=== PATIENT | female | born 1950 | race Caucasian/White ===

== ENCOUNTER 2016-12-27 09:50 | Inpatient (IN) ==
[2016-12-27] MEDS ORDERED: HYDROmorphone 2 MG/1 ML VIAL IV STA (10:01)
[2016-12-27] MEDS ORDERED: ONDANSETRON 4 MG/2 ML VIAL IV STA ×2 (10:02→11:09)
[2016-12-27] MEDS ORDERED: ONDANSETRON 4 MG/2 ML VIAL ONE ×2 (10:09→11:11)
[2016-12-27] MEDS ORDERED: HYDROmorphone 2 MG/1 ML VIAL ONE (10:10)
[2016-12-27] MEDS ORDERED: cefTRIAXone 2,000 MG in SODIUM CHLORIDE 0.9% 100 ML IV ONE (10:14)
[2016-12-27 10:43] LABS: Basophils # 0.2 10*3/uL (0.0-0.2); Basophils % 1.1 % (0.0-0.8); Eosinophils # 0.3 10*3/uL (0.0-0.87); Eosinophils % 2.3 % (0.00-10.9); Hematocrit 42.6 VOL% (35.7-47.0); Hemoglobin 14.4 GM/DL (12.0-16.0); Immature Granulocytes % 0.6 %; Immature Granulocytes Absolute 0.08 #; Lymphocytes # 2.2 10*3/uL (1.4-4.0); Lymphocytes % 15.3 % (21.3-54.2); Mean Corpuscular HGB Conc 33.8 GM/DL (32-36); Mean Corpuscular Hemoglobin 30 PG (27-34); Mean Corpuscular Volume 90.1 FL (87-102); Mean Platelet Volume 10.4 FL (9.6-12.0); Monocytes # 1.2 10*3/uL (0.11-0.8); Monocytes % 8.8 % (1.7-12.7); Neutrophils # 10.1 10*3/uL (1.4-7.4); Neutrophils % 71.9 % (38.7-73.9); Platelet Count 346 T/CUMM (130-400); Red Blood Count 4.73 MC/CUMM (3.8-5.5); Red Cell Distribution Width 14.7 % (9.3-17.3); White Blood Count 14.1 T/CUMM (4-12)
[2016-12-27 10:54] LABS: PT Patient Result 10.4 SECS; Partial Thromboplastin Time 26.6 SECS (0-40)
[2016-12-27] MEDS ORDERED: MIDAZOLAM 2 MG/2 ML VIAL IV STA (10:55)
--- NOTE | 2016-12-27 10:57 | CT Report ---
Referring physician: Lenny Mosley Exam: CT brain without contrast Date: 12/27/2016 Comparison: None Reason: Headache Technique: Axial images of the head were obtained without the use of contrast. Total DLP was 1416.60 mGy*cm. Findings: No hydrocephalus or midline shift is present. There is no evidence of an acute infarction, recent intracranial hemorrhage or extracerebral collection. 20 x 9 mm asymmetric CSF finding anterior to the left temporal lobe. The osseous structures appear intact. The mastoid air cells are clear. Minimal mucosal thickening in the visualized paranasal sinuses. Impression: No acute intracranial abnormality is identified. 20 x 9 mm possible small arachnoid cyst anterior to the left temporal lobe. This finding could be related to asymmetric cerebral atrophy. Very minimal mucosal thickening in the paranasal sinuses. The CT exam was performed using one or more of the following dose reduction techniques: Automated exposure control and adjustment of the mA and/or kV according to patient size. PROCEDURE INTERPRETED AT [facility] DEPARTMENT OF RADIOLOGY Final Report Signed by: Dr. Elizabet Schwarz
--- NOTE | 2016-12-27 10:57 | CT Report ---
Exam: CT sinus wo con Date: 12/27/2016 Reason: Headache Comparison: None Technique: Axial images of the paranasal sinuses were obtained without the use of contrast. Sagittal and coronal reformatted images were also acquired. Total DLP was 1416.60 mGy*cm. Findings: Very minimal mucosal thickening in the paranasal sinuses with no air-fluid levels. Deviation the nasal septum to the left anteriorly. Impression: Very minimal mucosal thickening in the paranasal sinuses with no air-fluid levels. Deviation of the nasal septum to the left. This CT exam was performed using one or more of the following dose reduction techniques: Automatic exposure control, adjustment of the MA and/or KV according to patient size, or use of iterative reconstruction technique. PROCEDURE INTERPRETED AT [facility] DEPARTMENT OF RADIOLOGY Final Report Signed by: Dr. Elizabet Schwarz
[2016-12-27] MEDS ORDERED: MIDAZOLAM 2 MG/2 ML VIAL ONE (10:58)
[2016-12-27 11:20] LABS: Calcium 8.6 MG/DL (8.5-10.1); Osmolality,Calculated 282.1 MOS/KG (273-304); Potassium 4.2 MMOL/L (3.5-5.1)
[2016-12-27 11:47] LABS: Appearance,CSF Clear; Lymphocytes,CSF 60 %; Monocytes,CSF 37 %; Neutrophils,CSF 3 %; Red Blood Cell,CSF 2 C/CUMM; White Blood Cell,CSF 134 C/CUMM
[2016-12-27 11:49] LABS: Sedimentation Rate-Westergren 17 MM/HR (0-30)
[2016-12-27 11:55] LABS: Glucose,CSF 50 MG/DL (40-70)
[2016-12-27] MEDS ORDERED: HYDROmorphone 2 MG/1 ML VIAL IV PRN (12:18)
[2016-12-27] MEDS ORDERED: NALOXONE 0.4 MG/ML VIAL IV PRN (12:18)
--- NOTE | 2016-12-27 12:33 | Emergency Department Note ---
Rafy Dean Brittany, am scribing for, and in the presence of, Sedrick Mosley MD 10:03. Dimitri Dean Doug C, MD, personally performed the services described in this documentation, ascribed by Jeaneth Hillman in my presence, and it is both accurate and complete . Arrival - Arrival Chief Complaint: Headache Stated Complaint: H/A ED Nursing Triage Note: h/a for two days with some fever and nausea and feels like she is having confusion. Mode of Arrival: Wheelchair Limitations: No Limitations Source: Patient, RN Notes Reviewed Time Seen by Provider: 12/27/16 10:01 - History of Present Illness HPI Narrative: Patient 66-year-old white female developed severe headache beginning yesterday. Patient states pain is in the left frontal area associated with some mild photophobia but she has no history of migraine. Patient states she has felt hot at home and she developed nausea and vomiting as well. She is here in town taking care of her grandchildren while her son and [id number] are vacationing in [place]. None of her grandchildren have been ill. Patient states she has had some sinus congestion but no purulent drainage or epistaxis. Her noticed that she got a little confused this morning. She has no lateralizing weakness or paresthesias. Onset (ago): day(s) (2) Consistency: constant Severity: moderate Severity scale (1-10): 6 Quality: aching Allergies/Adverse Reactions: Allergies Allergy/AdvReac Type Severity Reaction Status Date / Time No Known Allergies Allergy Unverified 12/27/16 09:58 Review of System - Review of System 12 point system: reviewed and no additional remarkable complaints except as stated - Review of System Constitutional: Present: fever. Absent: chills Eyes: Present: other (photophobia) Head/Ears/Nose/Throat: Present: see HPI. Absent: earache, nasal drainage, sore throat Respiratory: Absent: cough, respiratory distress Cardiovascular: Absent: chest pain Gastrointestinal: Present: nausea, vomiting. Absent: abdominal pain, diarrhea, constipation Genitourinary female: Absent: dysuria, frequency, urgency Musculoskeletal: Absent: arm pain, back pain, leg pain, neck pain Skin: Absent: rash Neurological: Present: headache, confusion. Absent: numbness, paresthesias Psychiatric: Absent: anxiety, depression Hematological/Lymphatic: Absent: easy bleeding, easy bruising Medical,Surgical,& Family Hx - Medical History Cardio: History of: Hypertension - Surgical History Surgical History: noncontributory - Family History Family History: noncontributory - Social History Smoking Status: Unknown if ever smoked Exam Vital Signs: Vital Signs Temperature 101.5 F H 12/27/16 09:54 Pulse Rate 94 H 12/27/16 09:54 Respiratory Rate 18 12/27/16 09:54 Blood Pressure 116/87 12/27/16 09:54 O2 Sat by Pulse Oximetry 99 12/27/16 09:54 - General General appearance: alert, in no apparent distress - Head Head exam: Present: atraumatic, normocephalic, normal inspection - Eye Eye exam: Present: normal appearance, PERRL, EOMI - ENT ENT exam: Present: normal exam, normal oropharynx - Neck Neck exam: Present: normal inspection, full ROM, trachea midline - Chest Chest inspection: Present: normal inspection, symmetric chest wall rise - Respiratory Respiratory exam: Present: normal lung sounds bilaterally - Cardiovascular Cardiovascular exam: Present: regular rate, normal rhythm, normal heart sounds - Abdominal Exam Abdominal exam: Present: soft, normal bowel sounds. Absent: tenderness - Extremities Exam Extremities exam: Present: normal inspection - Back Exam Back exam: Present: normal inspection - Neurological Exam Neurological exam: Present: alert, oriented X3, CN II-XII intact. Absent: motor sensory deficit - Psychiatric Psychiatric exam: Present: normal affect, normal mood - Skin Skin exam: Present: warm, dry Course Course Narrative: I discussed patient with her son Dr. Sheriff and Dr. Olivarez . Patient agrees to come into the hospital and I reviewed her care with Dr. Michaels. He agrees to this beginning IV acyclovir which was started in the emergency room. Patient's Gram stain was negative and her CSF differential was strongly suggestive of aseptic meningitis. Results - Labs CBC & BMP: 12/27/16 10:17 12/27/16 10:17 Lab Results: I have reviewed the patients labs Labs: Laboratory Tests 12/27/16 12/27/16 10:17 10:17 WBC 14.1 H RBC 4.73 Hgb 14.4 Hct 42.6 Plt Count 346 Lymph % (Auto) 15.3 L Baso % (Auto) 1.1 H Neut # (Auto) 10.1 H [place] # (Auto) 1.2 H INR 1.0 PT Patient/Control Mix 10.4 Circ Anticoag PTT 26.6 Laboratory Tests 12/27/16 10:17 Sodium 142 Potassium 4.2 Chloride 111 H Carbon Dioxide 24 Anion Gap 11.2 BUN 11 Creatinine 0.80 GFR Calculation 89 BUN/Creatinine Ratio 13.00 Glucose 114 H Calculated Osmolality 282.1 Calcium 8.6 C-Reactive Protein 0.87 H Microbiology 12/27/16 10:14 Nasal Aspirate Influenza Types A,B Antigen (KATHIE) - Final Negative for Influenza A Ag Negative for Influenza B Ag Laboratory Tests 12/27/16 12/27/16 10:17 11:20 ESR Westergren 17 CSF Appearance Clear CSF Color Colorless CSF WBC 134 CSF RBC 2 CSF Diff Total Count 100 CSF Neutrophils 3 CSF Lymphocytes 60 CSF Monocytes 37 Laboratory Tests 12/27/16 11:20 CSF Glucose 50 CSF Total Protein 80 H Microbiology 12/27/16 11:22 Cerebral Spinal Fluid Gram Stain - Final No organisms seen Microbiology 12/27/16 11:23 Cerebral Spinal Fluid Chen Ink - Final 12/27/16 11:23 Cerebral Spinal Fluid Cryptococcal Antigen - Final Negative for Cryptococcus Ag No encapsulated organisms seen 12/27/16 11:22 Cerebral Spinal Fluid Fungal Smear - Final No fungal elements seen - Diagnostic Findings Procedure: CT: report reviewed by me (CT Head: No acute intracranial abnormality is identified. 20x9mm possible small arachnoid cyst anterior to the left temporal lobe. This finding could be related to asymmetric cerebral atrophy. Very minimal mucosal thickeing in the paranasal sinuses. CT Sinuses: Very minimal mucosal thickening in the paranasal sinuses with no air-fluid levels. Deviation of the nasal septum to the left.) Disposition Clinical Impression: Aseptic meningitis Case discussed with: patient, patient's family Disposition: Still a Patient Condition: Stable Time of Disposition: 12:33
[2016-12-27] MEDS: ACYCLOVIR INJ 1,000 MG in SODIUM CHLORIDE 0.9% 250 ML IV SCH ×2 (12:44→21:53)
[2016-12-27] MEDS: SODIUM CHLORIDE 0.45% 1,000 ML IV SCH (13:30)
[2016-12-27] MEDS: cefTRIAXone 1,000 MG in SODIUM CHLORIDE 0.9% 100 ML IV SCH (14:47)
[2016-12-27] MEDS ORDERED: hydroCHLOROthiazide 25 MG TABLET PO PRN (18:25)
[2016-12-27] MEDS: ACETAMINOPHEN 325 MG TABLET PO PRN (20:02)
[2016-12-27] MEDS: DOCUSATE SODIUM 100 MG CAPSULE PO SCH (21:18)
[2016-12-28] MEDS: SODIUM CHLORIDE 0.45% 1,000 ML IV SCH (00:04)
[2016-12-28] MEDS: ACYCLOVIR INJ 1,000 MG in SODIUM CHLORIDE 0.9% 250 ML IV SCH ×3 (04:19→21:10)
[2016-12-28 05:40] LABS: Calcium 8.2 MG/DL (8.5-10.1); Osmolality,Calculated 278.5 MOS/KG (273-304)
[2016-12-28] MEDS: ACETAMINOPHEN 325 MG TABLET PO PRN ×3 (06:15→21:09)
--- NOTE | 2016-12-28 07:27 | Family Practice History&Phys ---
Assessment and Plan (1) Aseptic meningitis Status: Acute Assessment and plan: 12/28/2016: Patient has negative bacterial antigens. She is slightly improved from yesterday. IV acyclovir and Rocephin will be continued. Dr. Michaels has been consulted. Current Visit: Yes History of Present Illness Chief complaint: Headache and fever History of present illness: Ms. Sheriff is a 66 year old female Patient 66-year-old white female presented emergency room on day of admission complaining of headache and fever. She also had slight confusion according to her . She was found to have nuchal rigidity in the emergency room and felt she needed a diagnostic LP. This was performed and she was found to have 134 white cells per high-powered field with only 3% of these being neutrophils. Patient's Gram stain was negative and her bacterial antigen assay was negative. A herpes virus PCR was ordered and she was empirically placed on Rocephin pending's cultures as well as IV acyclovir. Patient states she is feeling a little bit better this morning than she did yesterday. She has not had any respiratory symptoms otherwise and was found to have a tiny amount of sinusitis on CT scan certainly not enough to account for her symptoms. Patient' s fever persists. Home Medications Medication Instructions Recorded Confirmed Type Amlodipine Besylate 5 mg PO DAILY 12/27/16 12/27/16 History hydroCHLOROthiazide 25 mg PO DAILY PRN 12/27/16 12/27/16 History [Hydrochlorothiazide] Allergies Allergy/AdvReac Type Severity Reaction Status Date / Time No Known Allergies Allergy Unverified 12/27/16 09:58 - Constitutional Constitutional: Present: chills, fatigue, fever(s), lethargy, weakness - EENT Eyes: Absent: blurry vision, loss of vision Ears: Absent: decreased hearing, ear pain Nose, mouth and throat: Present: headache(s). Absent: nasal congestion, sinus pressure, sore throat - Cardiovascular Cardiovascular: Absent: chest pain at rest, dyspnea, orthopnea, palpitations, PND - Respiratory Respiratory: Absent: cough, dyspnea, dyspnea on exertion - Gastrointestinal Gastrointestinal: Present: nausea, vomiting. Absent: abdominal pain, diarrhea, dyspepsia, dysphagia - Genitourinary Genitourinary: Absent: difficulty urinating, dysuria, hematuria, urinary frequency - Musculoskeletal Musculoskeletal: Absent: back pain, joint swelling - Neurological Neurological: Present: confusion. Absent: abnormal gait, focal weakness, numbness, paresthesias - Psychiatric Psychiatric: Absent: anxiety, confusion, depression - Endocrine Endocrine: Absent: fatigue, polydipsia, polyphagia - Hematologic/Lymphatic Hematologic/Lymphatic: Absent: easy bleeding, easy bruising Medical,Surgical,& Family Hx - Medical History Cardio: History of: Hypertension - Surgical History Surgical History: noncontributory - Family History Family History: noncontributory - Social History Smoking Status: Unknown if ever smoked Frequency of Alcohol Use: None Type of Drug Use: None Exam - Constitutional Vitals: Period Temp Pulse Resp BP Sys/Russell Pulse Ox Last 24 Hr 97.9 F-102.0 F 79-123 17-20 116-148/61-87 90-99 Exam: General: Objective patient is a well-developed white female in no acute distress. She still has some delay in answering questions though she is more spontaneous than yesterday. She is able to follow commands accurately. HEENT: Pupils equal and reactive to light. Patent nares and airway Neck: Patient has some mild persistent meningismus. There is no adenopathy, thyromegaly. There are no auscultated carotid bruits. Cardiovascular: Regular rhythm. No murmurs or gallops Chest: Clear to auscultation without rales rhonchi wheezes. Abdomen: Soft nontender to palpation No masses, rebound, guarding or tenderness. Neuro: Cranial nerves intact and DTRs and strength symmetric in all extremities. Dermatologic: No evidence of abnormal lesions or masses. Musculoskeletal: There is no joint swelling or tenderness or deformity. Extremities: No calf swelling or tenderness. Results - Labs CBC & BMP: 12/27/16 10:17 12/28/16 04:17 Lab Results: I have reviewed the past 24 hour labs Quality Measures - Stroke Symptom Onset Unknown: No
[2016-12-28] MEDS: SODIUM CHLORIDE 0.9% 1,000 ML IV SCH ×3 (07:28→21:12)
[2016-12-28] MEDS: cefTRIAXone 1,000 MG in SODIUM CHLORIDE 0.9% 100 ML IV SCH (09:01)
[2016-12-28] MEDS: DOCUSATE SODIUM 100 MG CAPSULE PO SCH ×2 (09:02→21:09)
[2016-12-28] MEDS: amLODIPine 5 MG TABLET PO SCH (09:02)
[2016-12-28] MEDS: PANTOPRAZOLE 40 MG TABLET PO SCH (09:02)
--- NOTE | 2016-12-28 15:51 | Neurology Consult Note ---
History of Present Illness History of present illness: Patient 66-year-old right-handed white lady presented to emergency room on day of admission complaining of headache and fever. She also had slight confusion according to her . They just drove from [place] to [place] on and she started having headaches that day. She was found to have nuchal rigidity in the emergency room. She was a little confused as well. A CT of the head revealed no acute significant pathology. She underwent a spinal tap which was found to have 134 white cells per high-powered field with only 3% of these being neutrophils and 60% lymphocytes. Glucose was 50 and total protein was 80. patient's Gram stain was negative and her bacterial antigen assay was negative. A herpes virus PCR was ordered and she was empirically placed on Rocephin pending's cultures as well as IV acyclovir. Patient states she is feeling a little bit better this morning than she did yesterday. Fever has slightly improved. Home Medications Medication Instructions Recorded Confirmed Type Amlodipine Besylate 5 mg PO DAILY 12/27/16 12/27/16 History hydroCHLOROthiazide 25 mg PO DAILY PRN 12/27/16 12/27/16 History [Hydrochlorothiazide] Allergies Allergy/AdvReac Type Severity Reaction Status Date / Time No Known Allergies Allergy Unverified 12/27/16 09:58 12 point system: reviewed and no additional remarkable complaints except as stated Medical,Surgical,& Family Hx - Medical History Cardio: History of: Hypertension - Social History Smoking Status: Unknown if ever smoked Frequency of Alcohol Use: None Type of Drug Use: None Exam - Constitutional Vitals: Period Temp Pulse Resp BP Sys/Russell Pulse Ox Last 24 Hr 98.9 F-102.4 F 77-123 18-20 115-148/55-67 90-94 Exam: GENERAL: Patient is in no acute distress. NECK: Neck is supple. There is no JVD. No carotid bruits present. No thyroid masses. CVS: First and second heart sounds are normal. There is no S3 present. Regular rate and rhythm. RESPIRATORY: Lungs are clear to auscultation without any rales or rhonchi. ABDOMEN: Soft and non-tender. Bowel sounds are present. There is no hepatosplenomegaly. EXT: There is no palpable edema. Peripheral pulses are present. Skin: No rashes Central Nervous system: General: Alert, awake and Oriented x 3 Speech: Fluent Comprehension: Intact and normal Facial expressions: Normal Cranial Nerves: CN1/Olfactory: Normal CN II/ Optic: Normal, Visual Tran unreliable CN III, and : ALBERTO & EOMI CN V: Normal & intact CN VII: face is symmetric CNVIII: Normal CN XI/X/XI/XII: Intact and Normal Motor: Bulk and Tone is normal. Strength in the right 5/5 Strength in the left 5/5 Sensory: Grossly intact for all the modalities of PP, LT and temp sense Reflexes: 1+ and symmetrical Cerebellar function: Normal finger to nose and heel to kemp testing. Toes: Equivocal Gait: Not tested at this time Results - Labs CBC & BMP: 12/27/16 10:17 12/28/16 04:17 Assessment and Plan (1) Viral meningitis Status: Acute Assessment and plan: CSF and clinical exam does suggestive of viral meningitis. Continue acyclovir and Rocephin Await for herpes PCR Patient seems to be improving Thank you for the consult Current Visit: Yes
[2016-12-29] MEDS: ACETAMINOPHEN 325 MG TABLET PO PRN ×3 (03:29→17:16)
[2016-12-29] MEDS: SODIUM CHLORIDE 0.9% 1,000 ML IV SCH ×3 (03:30→15:08)
[2016-12-29] MEDS: ONDANSETRON 4 MG/2 ML VIAL IV PRN ×2 (05:02→22:00)
[2016-12-29] MEDS: ACYCLOVIR INJ 1,000 MG in SODIUM CHLORIDE 0.9% 250 ML IV SCH ×3 (05:03→20:33)
[2016-12-29 05:55] LABS: Calcium 7.9 MG/DL (8.5-10.1); Osmolality,Calculated 286.8 MOS/KG (273-304); Potassium 3.9 MMOL/L (3.5-5.1)
--- NOTE | 2016-12-29 07:27 | Family Practice Progress Note ---
Family Practice - PN: Subj Interval history: Patient states she may be feeling a little bit better this morning and she is certainly more alert. She is still confused and I could not get her to perform serial sevens past 93. She states her headache is slightly improved. Her fever continues to wax and wane but it is trending down. She has not had any further nausea or vomiting. Her herpes PCR is pending. Exam (Progress Note) - Constitutional Vitals: Period Temp Pulse Resp BP Sys/Russell Pulse Ox Last 24 Hr 98.2 F-102.4 F 74-100 18-20 115-146/55-71 90-92 Exam: Objective a well-developed white female who is awake and alert and responds appropriately to commands. Her memory is still impaired and she had difficulty with cognitive function. She has symmetrical strength in upper and lower extremities and has no facial asymmetry. Cardiovascular: Heart rates regular without murmurs or gallops. Respiratory: The lungs clear to auscultation bilaterally. Abdomen: Abdomen soft nontender to palpation. Neuro: Patient has symmetrical strength in all extremities. She has no facial asymmetry. She was unable to do serial sevens past 93. Results - Labs CBC & BMP: 12/27/16 10:17 12/29/16 04:26 Lab Results: I have reviewed the past 24 hour labs Assessment and Plan (1) Aseptic meningitis Status: Acute Assessment and plan: 12/28/2016: Patient has negative bacterial antigens. She is slightly improved from yesterday. IV acyclovir and Rocephin will be continued. Dr. Michaels has been consulted. 12/29/2016: Patient is clinically improving. Current Visit: Yes Quality Measures - Stroke Symptom Onset Unknown: No
[2016-12-29] MEDS: DOCUSATE SODIUM 100 MG CAPSULE PO SCH ×2 (09:28→20:33)
[2016-12-29] MEDS: amLODIPine 5 MG TABLET PO SCH (09:28)
[2016-12-29] MEDS: PANTOPRAZOLE 40 MG TABLET PO SCH (09:28)
[2016-12-29] MEDS: cefTRIAXone 1,000 MG in SODIUM CHLORIDE 0.9% 100 ML IV SCH (09:29)
--- NOTE | 2016-12-29 10:38 | Physician Query Form ---
CLICK EDIT DOCUMENT TO SELECT QUERY ANSWER --> OK --> SIGN Kylie Zapata RN Clinical Vocational Rehabilitation Counselor W) [phone] (f) [phone] [email or web address] PROVIDERS: Make your selection(s) from the choices in EACH section by typing an "x" and enter comments in the comment section. Please use your independent medical judgment in providing your response. This request does not imply that any particular answer is desired or expected. CLINICAL INDICATORS: (Providers should not edit this section) Based on documentation of "Confused this morning" "Still confused" "acute viral meningitis" Treated with NS infusion, IV acyclovir, and IV Rocephin. ACUITY: (x ) Acute ( ) Acute on Chronic ( ) Chronic ( ) Clinically unable to determine NATURE: ( ) Delirium due to general medical condition ( ) Dementia (x ) Encephalopathy ( ) Unconscious ( ) Transient level of awareness ( ) Comatose ( ) Locked-in State ( ) Persistent Vegetative State ( ) Other, please specify: ( ) Clinically unable to determine Please indicate the underlying cause of the altered mental status (CHECK ALL THAT APPLY): ( ) Baseline dementia ( ) Alzheimer's disease ( ) Parkinson's disease ( ) Lewy body dementia ( ) Acute stroke ( ) Late effect of stroke ( ) Reactive (from emotional stress, psychological trauma) ( ) Due to narcotics/other drugs ( ) Post procedural delirium ( ) Transient ischemic attack ( ) Generalized cerebral edema ( ) Normal pressure hydrocephalus ( ) Psychiatric illness (x ) Other, please specify: ( ) Clinically unable to determine Please indicate if there is an infection, sepsis, dehydration or specific organ failure that is causing the dementia. Be specific with clarifying the relationship between that process and the mental status change. COMMENTS: PLEASE ALSO DOCUMENT RESPONSE IN PROGRESS NOTES AND/OR DISCHARGE SUMMARY Use of terms such as suspected, likely, or probable (associated with a specific diagnosis that is being evaluated, monitored, or treated as if it exists) are acceptable and can be restated in the discharge summary if not ruled out. MTDD
--- NOTE | 2016-12-29 15:17 | Neurology Progress Note ---
Neurology - PN : Subjective Interval history: Patient seems to be doing a little better than yesterday. She is running low- grade temperature of 99.4. She is eating better however complaining of right ear pain which has been going on for a while but she did not mention anything yesterday. I am not sure if she needs ENT evaluation but I would defer this to Dr. Huddleston. Exam (Progress Note) - Constitutional Vitals: Period Temp Pulse Resp BP Sys/Russell Pulse Ox Last 24 Hr 98.2 F-102.4 F 72-99 18-20 118-146/58-71 92-94 Exam: GENERAL: Patient is in no acute distress. NECK: Neck is supple. There is no JVD. No carotid bruits present. No thyroid masses. CVS: First and second heart sounds are normal. There is no S3 present. Regular rate and rhythm. RESPIRATORY: Lungs are clear to auscultation without any rales or rhonchi. ABDOMEN: Soft and non-tender. Bowel sounds are present. There is no hepatosplenomegaly. EXT: There is no palpable edema. Peripheral pulses are present. Skin: No rashes Central Nervous system: General: Alert, awake and Oriented x 3 Speech: Fluent Comprehension: Intact and normal Facial expressions: Normal Cranial Nerves: CN1/Olfactory: Normal CN II/ Optic: Normal, Visual Tran unreliable CN III, and : ALBERTO & EOMI CN V: Normal & intact CN VII: face is symmetric CNVIII: Normal CN XI/X/XI/XII: Intact and Normal Motor: Bulk and Tone is normal. Strength in the right 5/5 Strength in the left 5/5 Sensory: Grossly intact for all the modalities of PP, LT and temp sense Reflexes: 1+ and symmetrical Cerebellar function: Normal finger to nose and heel to kemp testing. Toes: Equivocal Gait: Not tested at this time Results - Labs CBC & BMP: 12/27/16 10:17 12/29/16 04:26 Assessment and Plan (1) Viral meningitis Status: Acute Assessment and plan: Continue acyclovir and Rocephin Await for herpes PCR Consult PT and OT Current Visit: Yes Quality Measures - Stroke Symptom Onset Unknown: No
[2016-12-29 19:37] LABS: Lactic Acid 0.9 MMOL/L (0.4-2.0)
[2016-12-29] MEDS: DEXTROSE 5% NACL 0.45% 1,000 ML IV SCH (20:32)
[2016-12-30] MEDS: DEXTROSE 5% NACL 0.45% 1,000 ML IV SCH (05:53)
[2016-12-30] MEDS: ACYCLOVIR INJ 1,000 MG in SODIUM CHLORIDE 0.9% 250 ML IV SCH ×3 (05:53→20:22)
[2016-12-30 06:07] LABS: Basophils # 0.1 10*3/uL (0.0-0.2); Basophils % 0.7 % (0.0-0.8); Eosinophils # 0.4 10*3/uL (0.0-0.87); Eosinophils % 2.7 % (0.00-10.9); Hemoglobin 12.7 GM/DL (12.0-16.0); Immature Granulocytes % 0.6 %; Immature Granulocytes Absolute 0.09 #; Lymphocytes # 3.1 10*3/uL (1.4-4.0); Lymphocytes % 20.2 % (21.3-54.2); Mean Corpuscular HGB Conc 34.3 GM/DL (32-36); Mean Corpuscular Hemoglobin 31 PG (27-34); Mean Corpuscular Volume 89.8 FL (87-102); Mean Platelet Volume 10.4 FL (9.6-12.0); Monocytes % 12.9 % (1.7-12.7); Neutrophils # 9.7 10*3/uL (1.4-7.4); Neutrophils % 62.9 % (38.7-73.9); Platelet Count 272 T/CUMM (130-400); Red Blood Count 4.12 MC/CUMM (3.8-5.5); Red Cell Distribution Width 14.9 % (9.3-17.3); White Blood Count 15.4 T/CUMM (4-12)
[2016-12-30 06:45] LABS: Calcium 8.2 MG/DL (8.5-10.1); Potassium 3.7 MMOL/L (3.5-5.1)
--- NOTE | 2016-12-30 07:19 | Family Practice Progress Note ---
Family Practice - PN: Subj Interval history: Patient thinks she is a little bit better this morning but still has a headache. Her right lower quadrant abdominal pain that she complained of last night is a bit better this morning. She does have a past medical history of UTIs and kidney stones. I told her we should probably proceed with a CT of her abdomen and she was agreeable to that. I am going to repeat a urinalysis and also get a urine culture on her today. She is on IV Rocephin and acyclovir. Reduce her IV fluids last night but I cautioned her to maintain good liquid intake. I will be checking her BMP every 48 hours. We are still awaiting her previous virus PCR. Exam (Progress Note) - Constitutional Vitals: Period Temp Pulse Resp BP Sys/Russell Pulse Ox Last 24 Hr 98.7 F-101.5 F 71-100 16-20 101-181/48-72 92-96 Exam: Objective a well-developed white female who is awake and alert and responds appropriately to commands. Her memory is still impaired and she had difficulty with serial sevens she has symmetrical strength in upper and lower extremities and has no facial asymmetry. HEENT: I reviewed her right TM yesterday and she had slight erythema of her external canal or tympanic membranes on both sides were normal. Cardiovascular: Heart rates regular without murmurs or gallops. Respiratory: The lungs clear to auscultation bilaterally. Abdomen: Abdomen soft nontender to palpation. Neuro: Patient has symmetrical strength in all extremities. She has no facial asymmetry. She was unable to do serial sevens past 93. Results - Labs CBC & BMP: 12/30/16 05:38 12/30/16 05:38 Lab Results: I have reviewed the past 24 hour labs Assessment and Plan (1) Aseptic meningitis Status: Acute Assessment and plan: 12/28/2016: Patient has negative bacterial antigens. She is slightly improved from yesterday. IV acyclovir and Rocephin will be continued. Dr. Michaels has been consulted. 12/29/2016: Patient is clinically improving. 12/30/2016: Patient may be slightly improved this a.m. She still cannot do serial sevens but she is able to follow commands accurately. She is complaining of some right lower quadrant abdominal pain I am going to do a noncontrasted CT. Current Visit: Yes Quality Measures - Stroke Symptom Onset Unknown: No
--- NOTE | 2016-12-30 08:42 | CT Report ---
Exam: CT abdomen pelvis wo con Date: 12/30/2016 7:15 AM Comparison: None Indication: Right lower quadrant pain Total DLP: 750 mGy*cm Technical: No oral contrast was administered Images were obtained from the lung bases to the iliac crest continuation through the pelvis without intravenous contrast with axial sagittal coronal imaging available for review. Dose reduction was performed with decreasing kv and mA and automated exposure Findings: Lung bases: Bilateral base pleural effusion atelectatic changes are present. Small calcified granuloma measuring approximately 7 mm in the right base. Heart is normal in size. Liver and Spleen: Liver is unremarkable. Previous splenectomy with surgical clips present with a small area of residual splenic tissue suspected Gallbladder and Pancreas: Previous cholecystectomy. The pancreas is unremarkable. Adrenals: Unremarkable Kidneys: Mild hydronephrosis and dilatation renal collecting system without obvious stone or obstruction left or right ureter. Stomach: Incompletely distended with air fluid and debris Retroperitoneum: No enlarged lymph nodes. Aorta and IVC: Minimal atherosclerotic plaque in the aorta iliac vessels. No obvious aneurysm. Aorta and IVC without contrast or not otherwise evaluated. Bowel and Mesentery: There is no evidence for bowel obstruction. No evidence of diverticulosis or diverticulitis or mass present. Moderate fecal debris present. Pelvis: Bladder: Markedly distended urinary bladder Fluid: No free fluid identified. Lymph nodes: No enlarged lymph nodes. Pelvic organs: The uterus is slightly deviated towards the left. Phleboliths present in the true pelvis on the right Osseous structures: Vacuum phenomena degenerative changes present at L5-S1 Impression: 1. Distended urinary bladder with mild hydronephrosis of the renal collecting system bilaterally without obstructive stones present. Carrasco catheter may be beneficial for further evaluation this time 2. Previous cholecystectomy and splenectomy suspected 3. Tiny low volume effusions present bilaterally with atelectatic change in granuloma in the right base. PROCEDURE INTERPRETED AT [facility] DEPARTMENT OF RADIOLOGY Final Report Signed by: Dr. Joaquín Shah
[2016-12-30] MEDS: amLODIPine 5 MG TABLET PO SCH (08:57)
[2016-12-30] MEDS: cefTRIAXone 1,000 MG in SODIUM CHLORIDE 0.9% 100 ML IV SCH (08:57)
[2016-12-30] MEDS: DOCUSATE SODIUM 100 MG CAPSULE PO SCH ×2 (08:57→20:24)
[2016-12-30] MEDS: PANTOPRAZOLE 40 MG TABLET PO SCH (08:57)
[2016-12-30 12:08] LABS: Apearance,Urine CLEAR (Clear); Bilirubin,Urine Negative (Negative); Blood, Urine Small mg/dL (Negative); Glucose,Urine (UA) Negative (Negative); Ketones,Urine 5 mg/dL (Negative); Mucus,Urine Occasional /LPF (Occasional); Nitrite,Urine Negative (Negative); Protein,Urine Negative; RBC,Urine 6 /HPF (0-4); Urine Color Straw (Yellow); Urine Specific Gravity 1.008 (1.001-1.035); Urine Urobilinogen < 2.0 EU/DL (0.2-1.0); WBC,Urine <1 /HPF (0-6)
--- NOTE | 2016-12-30 13:17 | Urology Consultation ---
Assessment and Plan - Time spent with patient Time spent with patient: Less than 30 minutes (1) Urinary retention Status: Acute Assessment and plan: We will leave the catheter for a day and then take it out and give her a voiding trial. Catheter if we need to. The hydronephrosis should resolve. I do not know if she has a chronic problem but we will see. Current Visit: Yes (2) Bilateral hydronephrosis Status: Acute Assessment and plan: Should resolve with better voiding. Current Visit: Yes History of Present Illness - Data of Consult Patient: new to practice Consult date: 12/30/16 Requesting Physician: Sedrick Mosley - Consult Narrative Reason for consult: Urinary retention with hydronephrosis History of present illness: Ms. Sheriff is a 66 year old female who was admitted the hospital with an infected PICC sure that is thought to be possibly meningitis. She been in the hospital a few days and has been found to be in urinary retention with 800 cc residual. She has mild bilateral hydronephrosis. Prior to the hospitalization and in her normal state of health, she says she has a lot of infections but denies any significant voiding problems. She does have occasional constipation. Never had any bladder surgery. Has had kidney stones. The question is how what she beforehand. That is the unknown. But I recommend we keep the Carrasco for today and we will remove it first thing in the morning and perform intermittent catheterization as needed. She needs to have a bowel movement as it been for 5 days since she has had one. We will give her a voiding trial and see if she normalizes. I reviewed her medicine list and medicines a lot of the time are contributory to this but she is not on any medicines that can cause a bladder dysfunction. CC: Sedrick Mosley MD - Home Medications and Allergies Home Medications: Home Medications Medication Instructions Recorded Confirmed Type Amlodipine Besylate 5 mg PO DAILY 12/27/16 12/27/16 History hydroCHLOROthiazide 25 mg PO DAILY PRN 12/27/16 12/27/16 History [Hydrochlorothiazide] Allergies/Adverse Reactions: Allergies Allergy/AdvReac Type Severity Reaction Status Date / Time No Known Allergies Allergy Unverified 12/27/16 09:58 12 point system: reviewed and no additional remarkable complaints except as stated Exam - Constitutional Vitals: Period Temp Pulse Resp BP Sys/Russell Pulse Ox Last 24 Hr 98.0 F-101.5 F 60-100 16-20 101-181/48-72 92-96 - GI/Abdominal GI/Abdominal exam: Present: soft. Absent: mass, tenderness, rebound Results - Labs CBC & BMP: 12/30/16 05:38 12/30/16 05:38
[2016-12-30] MEDS ORDERED: MAGNESIUM CITRATE 300 ML BOTTLE PO PRN (13:20)
[2016-12-30] MEDS ORDERED: MAGNESIUM HYDROXIDE SUSP 30 ML UDCUP PO PRN (13:20)
[2016-12-31] MEDS: DEXTROSE 5% NACL 0.45% 1,000 ML IV SCH ×4 (02:00→23:15)
[2016-12-31] MEDS: ACYCLOVIR INJ 1,000 MG in SODIUM CHLORIDE 0.9% 250 ML IV SCH ×2 (04:23→14:18)
--- NOTE | 2016-12-31 08:36 | Family Practice Progress Note ---
Family Practice - PN: Subj Interval history: Patient states that she feels she has some better today. She still is very weak and is still having some headaches. He vomited yesterday when she stood up to ambulate. She is afebrile at present. Her blood and CSF cultures have all been negative. Her hepatic studies are still pending. Patient is also had significant cognitive changes since onset of symptoms. She continues to have problems with memory and simple calculations. thinks that this is some better but patient did remember the name of her primary care doctor Dr. Mosley. Her urinary catheter was removed this a.m. We will monitor this closely for any signs of urinary retention. In view of the persistent symptoms I am going to ask Dr. Adolph Diaz to evaluate patient. I still feel this is a viral etiology but would appreciate her opinion. We will continue present treatment plan and hopefully patient should continue to improve. Have encouraged to set up in chair and ambulate as much as possible Exam (Progress Note) - Constitutional Vitals: Period Temp Pulse Resp BP Sys/Russell Pulse Ox Last 24 Hr 97.7 F-98.5 F 60-78 16-20 113-138/60-77 90-95 Results - Labs CBC & BMP: 12/30/16 05:38 12/30/16 05:38 Quality Measures - Stroke Symptom Onset Unknown: No
[2016-12-31] MEDS ORDERED: BISACODYL 5 MG TABLET PO ONE (08:37)
[2016-12-31] MEDS: amLODIPine 5 MG TABLET PO SCH (09:12)
[2016-12-31] MEDS: PANTOPRAZOLE 40 MG TABLET PO SCH (09:12)
[2016-12-31] MEDS: DOCUSATE SODIUM 100 MG CAPSULE PO SCH ×2 (09:13→21:15)
[2016-12-31] MEDS: cefTRIAXone 1,000 MG in SODIUM CHLORIDE 0.9% 100 ML IV SCH (09:13)
--- NOTE | 2016-12-31 09:19 | Neurology Progress Note ---
Neurology - PN : Subjective Interval history: Overall patient seems to be doing much better. There is some cognitive issues. For some reason herpes PCR is still pending Exam (Progress Note) - Constitutional Vitals: Period Temp Pulse Resp BP Sys/Russell Pulse Ox Last 24 Hr 97.7 F-98.5 F 60-78 16-20 113-138/60-77 90-95 Exam: GENERAL: Patient is in no acute distress. NECK: Neck is supple. There is no JVD. No carotid bruits present. No thyroid masses. CVS: First and second heart sounds are normal. There is no S3 present. Regular rate and rhythm. RESPIRATORY: Lungs are clear to auscultation without any rales or rhonchi. ABDOMEN: Soft and non-tender. Bowel sounds are present. There is no hepatosplenomegaly. EXT: There is no palpable edema. Peripheral pulses are present. Skin: No rashes Central Nervous system: General: Alert, awake and Oriented x 3 Speech: Fluent Comprehension: Intact and normal Facial expressions: Normal Cranial Nerves: CN1/Olfactory: Normal CN II/ Optic: Normal, Visual Tran unreliable CN III, and : ALBERTO & EOMI CN V: Normal & intact CN VII: face is symmetric CNVIII: Normal CN XI/X/XI/XII: Intact and Normal Motor: Bulk and Tone is normal. Strength in the right 5/5 Strength in the left 5/5 Sensory: Grossly intact for all the modalities of PP, LT and temp sense Reflexes: 1+ and symmetrical Cerebellar function: Normal finger to nose and heel to kemp testing. Toes: Equivocal Gait: Not tested at this time Results - Labs CBC & BMP: 12/30/16 05:38 12/30/16 05:38 Assessment and Plan (1) Viral meningitis Status: Acute Assessment and plan: Continue acyclovir and Rocephin Await for herpes PCR Continue PT and OT Perform MRI of the brain Current Visit: Yes Quality Measures - Stroke Symptom Onset Unknown: No
[2016-12-31] MEDS ORDERED: BISACODYL 5 MG TABLET ONE (09:20)
--- NOTE | 2016-12-31 11:54 | Urology Progress Note ---
Assessment and Plan (1) Urinary retention Status: Acute Assessment and plan: We will leave the catheter for a day and then take it out and give her a voiding trial. Catheter if we need to. The hydronephrosis should resolve. I do not know if she has a chronic problem but we will see. Current Visit: Yes (2) Bilateral hydronephrosis Status: Acute Assessment and plan: Should resolve with better voiding. Current Visit: Yes Urology - PN: Subj Interval history: Catheter is out patient is voiding. She has had a bowel movement. We will observe her voiding today. I will order bladder scan for tomorrow see how well she empties. Her urine culture is negative so far but should be out today. She needs to be as ambulatory as she can be. Exam - Constitutional Vitals: Period Temp Pulse Resp BP Sys/Russell Pulse Ox Last 24 Hr 97.4 F-99.8 F 66-87 16-20 113-138/62-77 90-95 Results - Labs CBC & BMP: 12/30/16 05:38 12/30/16 05:38
--- NOTE | 2016-12-31 14:52 | Magnetic Resonance Report ---
History: Meningitis. Headaches Date: 12/31/2016 Study: MRI brain with and without IV contrast Comparison exam: No previous MRI available for comparison The brain was imaged in 3 planes on the 1.5 Leeann magnet with and without IV contrast, to include diffusion, T2, FLAIR, and pre-and postcontrast T1-weighted sequences. 18 ml Dotarem contrast was given IV without immediate complication. The ventricles are midline in position without evidence of hydrocephalus. There is no Chiari I malformation. There is no gross pituitary mass. There is no evidence of acute ischemia on the diffusion sequence. There is a small amount of patchy increased FLAIR and T2 signal in the periventricular white matter without mass effect or enhancement compatible with changes of small vessel disease. There is no abnormal cerebral edema; specifically, there is no abnormal temporal lobe edema to suggest herpes encephalitis. There is no abnormal brain parenchymal enhancement. There is no mass effect or parenchymal hemorrhage. The superior sagittal sinus is patent. There is no gross flow abnormality in the [place] area. There is mild mucosal thickening in the ethmoid air cells bilaterally. Impression: Mild periventricular small vessel disease. No acute intracranial process otherwise. Mild ethmoid sinus disease which may be chronic or allergic PROCEDURE INTERPRETED AT [facility] DEPARTMENT OF RADIOLOGY Final Report Signed by: Dr. Denise Amaya
--- NOTE | 2016-12-31 17:08 | Infectious Disease Consult ---
Assessment and Plan (1) Aseptic meningitis Status: Acute Assessment and plan: Clearly abnormal CSF with elevated protein and lymphocytic pleocytosis. None of the white cells were noted to be neutrophils. HSV PCR negative. Probably some nonspecific viral meningitis. Recommendations 1. Discontinue acyclovir 2. Check West Nile virus serology 3. Will stop ceftriaxone as well as no indication for it at this time Thank you very much for the consult. Current Visit: Yes (2) Urinary retention Status: Acute Current Visit: Yes (3) Fever Status: Acute Assessment and plan: Suspect viral illness, no obvious focus of bacterial infection at this time. She does have abnormal CSF analysis suggestive of viral meningitis and this could be the cause of her fever. No evidence of UTI no intra-abdominal infection and no pneumonia symptoms although she has not had a chest x-ray. Recommendations: I will stop the ceftriaxone and she needs a chest x-ray just for completeness sake. I see one has been ordered for the morning. Observe temperature curve off antibiotics. Current Visit: Yes History of Present Illness Chief complaint: Possible meningitis History of present illness: Ms. Sheriff is a 66 year old female who is relatively well until the day of presentation when her found her lethargic in the morning and hot to touch is afebrile. The patient is normally depressed to wake up. When he got her up she had a headache and generalized malaise so she was brought to the hospital. The patient reported headache extending to the neck and there was concern for meningitis or lumbar puncture was done. Spinal fluid analysis came back abnormal and there was concern for possible viral meningitis. She was started empirically on acyclovir and also she was put on ceftriaxone. She was febrile to more than 102 on admission but fever curve has gradually come down and she has not had fever for 48 hours. She was also bit confused in the beginning but mental status is improved. No cough or shortness of breath or other respiratory symptoms no sore throat. She did have urinary retention and was found to have mild hydronephrosis. No ill contacts. She is visiting from [place]. Home Medications Medication Instructions Recorded Confirmed Type Amlodipine Besylate 5 mg PO DAILY 12/27/16 12/27/16 History hydroCHLOROthiazide 25 mg PO DAILY PRN 12/27/16 12/27/16 History [Hydrochlorothiazide] Allergies Allergy/AdvReac Type Severity Reaction Status Date / Time No Known Allergies Allergy Unverified 12/27/16 09:58 12 point system: reviewed and no additional remarkable complaints except as stated (Per HPI) Medical,Surgical,& Family Hx - Medical History Cardio: History of: Hypertension - Social History Smoking Status: Unknown if ever smoked Frequency of Alcohol Use: None Type of Drug Use: None Infectious Disease Exam H&P - Constitutional Vitals: Vital Signs Temp Pulse Resp BP Pulse Ox 97.4 F L 68 20 118/62 91 L 12/31/16 11:24 12/31/16 11:24 12/31/16 11:24 12/31/16 11:24 12/31/16 11:24 Intake and Output 12/31/16 12/31/16 12/31/16 07:59 15:59 23:59 Intake Total 1200 / 1200 1000 / 1000 Output Total 1300 / 1300 Balance -100 / -100 1000 / 1000 Intake: IV 1000 / 1000 1000 / 1000 D5 1/2Ns 1,000 ml @ 100 1000 / 1000 1000 / 1000 mls/hr IV .Q10H ALEJANDRA Rx#: [id number] Oral 200 / 200 Output: Urine 1300 / 1300 Other: Voiding Method Indwelling Catheter Toilet # Voids 1 # Bowel Movements 1 Weight 92.986 kg Patient Weight 12/31/16 23:59 Weight 92.986 kg Exam: General: Patient relatively comfortable, met sitting on side of bed doing physical therapy, smiling HEENT: Mucous membranes pink and moist, anicteric acyanotic, ALBERTO, no oropharyngeal exudates Neck: Supple, no thyroid gland enlargement, no lymphadenopathy Respiratory system: Breath sounds vesicular, no crepitations or wheezes Cardiovascular: Normal S1 and S2, no murmurs appreciated Abdomen: Normal bowel sounds, soft nontender throughout, no organomegaly or mass Genitourinary: No suprapubic pain or bladder distention Extremities: no edema Skin: No rash Reports - Labs CBC & BMP: 12/30/16 05:38 12/30/16 05:38 Labs: Laboratory Results - last 24 hr 12/27/16 11:20 CSF Herpes I DNA (PCR) Negative CSF Herpes II DNA (PCR) Negative - Reports Microbiology: Microbiology 12/30/16 09:15 Urine Culture - Preliminary Urine,Catheterized No Growth at 12 hours. - Diagnostic Findings Procedure: CT Abdomen and Pelvis: report reviewed by me, CT: report reviewed by me (CT brain unremarkable)
[2017-01-01 03:46] LABS: Basophils # 0.1 10*3/uL (0.0-0.2); Basophils % 1.1 % (0.0-0.8); Eosinophils # 0.5 10*3/uL (0.0-0.87); Hematocrit 36.6 VOL% (35.7-47.0); Hemoglobin 12.6 GM/DL (12.0-16.0); Immature Granulocytes % 0.5 %; Immature Granulocytes Absolute 0.04 #; Lymphocytes # 1.3 10*3/uL (1.4-4.0); Lymphocytes % 15.4 % (21.3-54.2); Mean Corpuscular HGB Conc 34.4 GM/DL (32-36); Mean Corpuscular Hemoglobin 30 PG (27-34); Mean Corpuscular Volume 88.4 FL (87-102); Mean Platelet Volume 10.6 FL (9.6-12.0); Monocytes # 1.1 10*3/uL (0.11-0.8); Neutrophils # 5.4 10*3/uL (1.4-7.4); Platelet Count 297 T/CUMM (130-400); Red Blood Count 4.14 MC/CUMM (3.8-5.5); Red Cell Distribution Width 14.6 % (9.3-17.3); White Blood Count 8.5 T/CUMM (4-12)
[2017-01-01 04:48] LABS: Sedimentation Rate-Westergren 50 MM/HR (0-30)
[2017-01-01 06:23] LABS: Albumin 2.7 G/DL (3.4-5.0); Bilirubin,Total 0.5 MG/DL (0.2-1.0); Calcium 8.4 MG/DL (8.5-10.1); Free T4 (Free Thyroxine) 1.26 NG/DL (0.76-1.46); Magnesium 2.1 MG/DL (1.8-2.4); Potassium 3.2 MMOL/L (3.5-5.1); Thyroid Stimulating Hormone 2.85 uIU/ml (0.358-3.74); Total Protein 5.5 G/DL (6.4-8.3)
--- NOTE | 2017-01-01 08:21 | Family Practice Progress Note ---
Family Practice - PN: Subj Interval history: Patient was admitted with fever mental confusion nuchal rigidity. This is the mother of Dr. Sheriff who was coming to [place] for a visit. She lives in [place]. Patient was subsequently found to have aseptic meningitis. Extensive workup with blood, CSF fluid,and other cultures have been negative. She developed significant mental confusion and disorientation. She is almost totally back to baseline this a.m. She is sitting up in a chair and has been ambulating. Her a.m. labs are stable except for a decreased potassium at 3.2. I have added KCl to her IV supplement. No new problems noted. If patient continues to improve should be ready for discharge soon. We have stopped all antiviral and antibiotics due to negative cultures and studies. Exam (Progress Note) - Constitutional Vitals: Period Temp Pulse Resp BP Sys/Russell Pulse Ox Last 24 Hr 97.1 F-98.3 F 68-83 16-20 114-128/57-77 91-97 Results - Labs CBC & BMP: 01/01/17 02:43 01/01/17 02:43 Quality Measures - Stroke Symptom Onset Unknown: No
[2017-01-01] MEDS: PANTOPRAZOLE 40 MG TABLET PO SCH (08:42)
[2017-01-01] MEDS: amLODIPine 5 MG TABLET PO SCH (08:42)
[2017-01-01] MEDS: DOCUSATE SODIUM 100 MG CAPSULE PO SCH ×2 (08:42→20:57)
[2017-01-01] MEDS ORDERED: SODIUM CHLOR 0.45% KCL 20 MEQ 20 MEQ/1,000 ML BAG IV SCH (09:00)
--- NOTE | 2017-01-01 09:18 | Urology Progress Note ---
Assessment and Plan (1) Urinary retention Status: Acute Assessment and plan: We will leave the catheter for a day and then take it out and give her a voiding trial. Catheter if we need to. The hydronephrosis should resolve. I do not know if she has a chronic problem but we will see. Current Visit: Yes (2) Bilateral hydronephrosis Status: Acute Assessment and plan: Should resolve with better voiding. Current Visit: Yes Urology - PN: Subj Interval history: Patient is improving I do not know that they have an answer for her illness. But she has been found to be in retention. They have catheterize during she is got 3 400 cc. Bladder scan this morning was over 600. I think the retention is probably related to her recent illness but it could have been an ongoing issue and just not sure at this point. But she is getting close to going home. She does have a urologist in [place]. I recommend we place her on Flomax and she take it daily. She is taken Flomax for stones in the past. The nurses will train her how to catheterize herself and I recommend she do that 3 times a day with a log. When she gets back home she can get an appointment see her urologist. She will bring the log and then he can take it from there. Prescription for Flomax was written. I had the discussion with the patient and then a conference with the . I will see her back as needed. Exam - Constitutional Vitals: Period Temp Pulse Resp BP Sys/Russell Pulse Ox Last 24 Hr 97.1 F-98.3 F 68-83 16-20 114-128/57-77 91-97 Results - Labs CBC & BMP: 01/01/17 02:43 01/01/17 02:43
--- NOTE | 2017-01-01 09:46 | XRay Report ---
Exam: XR chest 2V Date: 01/01/2017 4:00 AM Indication: Bronchitis Comparison: None Technical PA lateral Findings: The heart is normal in size. No obvious infiltrate or consolidation present. Tiny low volume left effusion with underlying reticular nodular densities. Previous cholecystectomy present. Small nodes in the mediastinum are present. Impression: 1. Tiny effusion with Minimal blunting left costophrenic angle 2. Underlying reticular nodular densities present in the lung perea with small calcified nodes in the mediastinum suggesting granuloma changes 3. Prior cholecystectomy. PROCEDURE INTERPRETED AT [facility] DEPARTMENT OF RADIOLOGY Final Report Signed by: Dr. Joaquín Shah
--- NOTE | 2017-01-01 10:53 | Event Note ---
Patient doing better in general, she has been afebrile, white blood cell count has come down, she is generally feeling stronger and think she is ready to go home. She is okay to go home from my standpoint. I advised her that recovery may be a bit prolonged - she might have malaise/fatigue for several days to weeks from now. Discussed with her at bedside.
[2017-01-01] MEDS: POTASSIUM CHLORIDE 10 MEQ TABLET PO SCH ×2 (11:00→20:57)
[2017-01-02 02:45] LABS: Basophils # 0.1 10*3/uL (0.0-0.2); Basophils % 0.6 % (0.0-0.8); Eosinophils # 0.5 10*3/uL (0.0-0.87); Eosinophils % 3.9 % (0.00-10.9); Hematocrit 36.6 VOL% (35.7-47.0); Hemoglobin 12.6 GM/DL (12.0-16.0); Immature Granulocytes % 0.7 %; Immature Granulocytes Absolute 0.08 #; Lymphocytes # 4.2 10*3/uL (1.4-4.0); Lymphocytes % 35.9 % (21.3-54.2); Mean Corpuscular HGB Conc 34.4 GM/DL (32-36); Mean Corpuscular Hemoglobin 30 PG (27-34); Mean Platelet Volume 10.6 FL (9.6-12.0); Monocytes # 1.2 10*3/uL (0.11-0.8); Monocytes % 10.3 % (1.7-12.7); Neutrophils # 5.7 10*3/uL (1.4-7.4); Neutrophils % 48.6 % (38.7-73.9); Platelet Count 311 T/CUMM (130-400); Red Blood Count 4.16 MC/CUMM (3.8-5.5); Red Cell Distribution Width 14.7 % (9.3-17.3); White Blood Count 11.6 T/CUMM (4-12)
[2017-01-02 03:13] LABS: Potassium 3.4 MMOL/L (3.5-5.1)
[2017-01-02] MEDS: PANTOPRAZOLE 40 MG TABLET PO SCH (09:47)
[2017-01-02] MEDS: DOCUSATE SODIUM 100 MG CAPSULE PO SCH (09:47)
[2017-01-02] MEDS: amLODIPine 5 MG TABLET PO SCH (09:47)
[2017-01-02] MEDS: POTASSIUM CHLORIDE 10 MEQ TABLET PO SCH (09:47)
--- NOTE | 2017-01-02 16:19 | Discharge Summary ---
Hospital Course - Hospital Course Hospital Course: This is a 66 year old female, visiting here from [place], with history of HTN. She was admitted with headache and confusion and thought to have viral meningitis and has responded well to treatment. Also, she was found to have urinary retention along with mild bilateral hydronephrosis and has been followed here by Dr. Kiet Mosley. She is now performing self catheterization to handle urinary retention and reports that the situation is improving. She is ready to be discharged and will follow up with Urology back home. Diagnosis - Discharge Diagnosis (1) Bilateral hydronephrosis Status: Acute (2) Fever Status: Resolved (3) Urinary retention Status: Acute (4) Viral meningitis Status: Resolved Specialty Discharge - Follow Up or Referrals Discharge Plan - Discharge Data Disposition: Disch To Home/Self Care Condition at Discharge: Stable Discharge Diet: low fat, low cholesterol Activity: increase activity as tolerated - Discharge Medications New Docusate Sodium Cap [Colace Cap] 100 mg PO BID capsule Potassium Chloride Cap/Tab [K Dur] 10 meq PO BID #60 tablet Continue hydroCHLOROthiazide [Hydrochlorothiazide] 25 mg PO DAILY PRN PRN Reason: Edema Amlodipine Besylate 5 mg PO DAILY - Follow Up or Referral - Forms/Instructions Instructions: How to Catheterize Yourself (Woman) (GEN) Additional Discharge Instructions: Follow up with Urologist at home, as well as regular physician within 1-2 weeks. Exam - Constitutional Vitals: Period Temp Pulse Resp BP Sys/Russell Pulse Ox Last 24 Hr 97.3 F-99.0 F 65-79 18-22 112-133/58-71 94-98 General appearance: no acute distress - Respiratory Respiratory exam: Present: clear to auscultation bilaterally - Cardiovascular Cardiovascular exam: Present: regular rate and rhythm - GI/Abdominal GI/Abdominal exam: Present: soft. Absent: tenderness - Extremities Exam Extremities exam: Absent: edema - Neurological Exam Neurological exam: Present: alert, oriented X3 - Psychiatric Psychiatric exam: Present: normal mood - Skin Skin exam: Present: warm, dry Discharge Results Procedures and tests throughout hospitalization: Pending Orders 12/27/16 Viral Culture, Non-Respiratory Stat 12/27/16 11:22 Fungal Culture w/ Prep Stat 12/31/16 17:09 West Nile Virus Ab (IgG/M),CSF Routine 01/01/17 02:43 West Nile Virus Ab,IgG/M, S Routine Labs on day of discharge: Labs from last 24 hours 01/02/17 01/02/17 02:09 02:09 WBC 11.6 D RBC 4.16 Hgb 12.6 Hct 36.6 MCV 88.0 MCH 30 MCHC 34.4 RDW 14.7 Plt Count 311 MPV 10.6 Neut % (Auto) 48.6 Lymph % (Auto) 35.9 [place] % (Auto) 10.3 Eos % (Auto) 3.9 Baso % (Auto) 0.6 Neut # (Auto) 5.7 Lymph # (Auto) 4.2 H [place] # (Auto) 1.2 H Eos # (Auto) 0.5 Baso # (Auto) 0.1 Immature Gran % 0.7 Nucleated RBC % 0.0 Immature Gran # 0.08 Nucleated RBCs # 0.00 Sodium 143 Potassium 3.4 L Chloride 109 H Carbon Dioxide 24 Anion Gap 13.4 BUN 13 Creatinine 0.70 GFR Calculation 105 BUN/Creatinine Ratio 18.00 Glucose 91 Calculated Osmolality 284.0 Calcium 8.0 L DS: Provider Date of admission: 12/27/16 12:18 Primary care physician: . No PCP Attending physician on admission: Sedrick Mosley MD Consults: 12/27/16 12:18 Consult to Case Mgmt/Social Srvs [CONS] Routine Reason for Case Mgmt/Social Srvs: Discharge Planning Consult to Physician [CONS] Routine Comment: Consulting Provider: Noé Michaels 12/29/16 15:17 Consult to Occupational Therapy [CONS] Routine Reason for Occupational Therapy: Evaluate and Treat Consult to Physical Therapy [CONS] Routine Reason for Physical Therapy: Evaluate and Treat 12/30/16 09:28 Consult to Physician [CONS] Routine Comment: distended bladder with mild hydronephrosis Consulting Provider: Bogdan Mosley Person Notified: ANUP Date Notified: 12/30/16 Time Notified: 10:05 12/31/16 08:29 Consult to Physician [CONS] Routine Comment: Help with treatment aseptic meningitis Consulting Provider: Krystyna Galarza Person Notified: KELBY Date Notified: 12/31/16 Time Notified: 09:10 Discharging clinician: Madelyn Eubanks DO Expected date of discharge: 01/02/17
[2017-01-02 16:41] VITALS: BP 120/59
== END 2017-01-02 17:00 | disposition home or self-care (01) | DRG 75 ==
LOC: N.ED 09:50 → N.EDINP 12:18 → N.2E 13:35
PROVIDERS: ADMIT Family Medicine; ATTEND Family Medicine